=== PATIENT | male | born 1960 | race African-American/Black ===

== ENCOUNTER 2025-02-01 22:35 | Emergency (ER) | payer OTHER ==
[2025-02-01] MEDS ORDERED: LIDOCAINE 2% W/EPI 1:200,000 MPF 20 ML VIAL IM ONE (23:17)
--- NOTE | 2025-02-02 00:41 | ER ---
Nurse's Notes [facility] Name: Kyle Coats Age: 64 yrs Sex: Male : 1960 Arrival Date: 02/01/2025 Time: 22:35 Bed 6 Private MD: Diagnosis: Laceration without foreign body of scalp Presentation: 02/01 22:54 Chief complaint: Patient states: was on his bed fixing his vent, was coming down from al5 the bed and fell and hit his head, laceration to right side back of scalp minimal bleeding. denies LOC and blood thinners. Coronavirus screen: At this time, the client does not indicate any symptoms associated with coronavirus-19. Ebola Screen: No symptoms or risks identified at this time. Complicating Factors: There are no complicating factors for this patient. Initial Sepsis Screen: Does the patient meet any 2 criteria? No. Patient's initial sepsis screen is negative. Does the patient have a suspected source of infection? No. Patient's initial sepsis screen is negative. Risk Assessment: Do you want to hurt yourself or someone else? Patient reports no desire to harm self or others. Onset of symptoms was February 01, 2025. 22:54 Method Of Arrival: Ambulatory al5 22:54 Acuity: FARRAH 3 al5 Triage Assessment: 22:57 General: Appears in no apparent distress. comfortable, Behavior is calm, cooperative. al5 Pain: Complains of pain in right parietal area. EENT: No signs and/or symptoms were reported regarding the EENT system. Neuro: Level of Consciousness is awake, alert, obeys commands, Oriented to person, place, time, situation. Cardiovascular: Capillary refill < 3 seconds Patient's skin is warm and dry. Respiratory: Airway is patent Respiratory effort is even, unlabored, Respiratory pattern is regular, symmetrical. GI: No signs and/or symptoms were reported involving the gastrointestinal system. : No signs and/or symptoms were reported regarding the genitourinary system. Derm: Wound noted right parietal area. Musculoskeletal: No signs and/or symptoms reported regarding the musculoskeletal system. Injury Description: Laceration sustained to right parietal area is clean, is bleeding a small amount. Historical: - Allergies: 22:56 No Known Allergies; al5 - PMHx: 22:56 Myocardial infarction; Hypertensive disorder; Hypercholesterolemia; prostate cancer; al5 - PSHx: 22:56 Coronary artery bypass graft; al5 - Immunization history:: Adult Immunizations up to date, Last tetanus immunization: up to date. - Infectious Disease History:: Denies. - Social history:: Smoking status: Patient denies any tobacco usage or history of. Screenin:58 [facility] ED Fall Risk Assessment (Adult) History of falling in the last 3 months, al5 including since admission Yes- single mechanical fall (1 pt) Confusion or Disorientation No (0 pts) Intoxicated or Sedated No (0 pts) Impaired Gait No (0 pts) Mobility Assist Device Used No (0 pt) Altered Elimination No (0 pt) Score/Fall Risk Level 0 - 2 = Low Risk Oriented to surroundings, Maintained a safe environment, Hourly rounding (assess needs \T\ fall precautionary measures) done. Abuse screen: Denies threats or abuse. Denies injuries from another. Nutritional screening: No deficits noted. Tuberculosis screening: No symptoms or risk factors identified. Assessment: 22:58 Reassessment: see triage assessment. al5 02/02 00:23 Reassessment: Patient appears in no apparent distress at this time. No changes from al5 previously documented assessment. Patient and/or family updated on plan of care and expected duration. Pain level reassessed. Patient is alert, oriented x 3, equal unlabored respirations, skin warm/dry/pink. Vital Signs: 02/01 22:54 BP 145 / 87; Pulse 63; Resp 16; Temp 98.2; Pulse Ox 100% on R/A; Weight 93.44 kg; al5 Height 5 ft. 10 in. ; 23:00 BP 134 / 82; Pulse 62; Resp 16; Pulse Ox 100% ; al5 23:30 BP 131 / 80; Pulse 62; Resp 16; Pulse Ox 99% ; al5 02/02 00:00 BP 142 / 82; Pulse 64; Resp 16; Pulse Ox 99% ; al5 00:53 BP 137 / 84; Pulse 61; Resp 16; Pulse Ox 100% ; al5 02/01 22:54 Body Mass Index 29.56 (93.44 kg, 177.8 cm) al5 ED Course: 02/01 22:40 Patient arrived in ED. jj6 22:54 Rhoda Colvin, RN is Primary Nurse. al5 22:56 Triage completed. al5 22:57 Campbell Richey PA is PHCP. cp 22:57 Reagan Laguna MD is Attending Physician. cp 22:58 Arm band placed on right wrist. Patient placed in the treatment room, in view of staff al5 members, on pulse oximetry. 22:59 Patient has correct armband on for positive identification. Bed in low position. Call al5 light in reach. Side rails up X2. Provided Education on: plan of care. 23:19 CT Head C Spine In Process Unspecified. EDOH 02/02 00:52 Assist provider with laceration repair on right parietal area that was between 2.6 to al5 7.5 cm using ara. Set up tray. Performed by Campbell GODOY Dressed with Neosporin, Patient tolerated well. Patient did not have IV access during this emergency room visit. Administered Medications: 00:20 Drug: Lidocaine Infiltration (2 %) 10 ml 5 ml Infiltration once; to bedside with al5 epinephrine {Note: given by provider.} Volume: 5 ml; Route: Infiltration; Medication: 02/01 22:58 VIS not applicable for this client. al5 Outcome: 02/02 00:40 Discharge ordered by . cp 00:53 Discharged to home ambulatory, with significant other, al5 00:53 Condition: good 00:53 Discharge instructions given to patient, Instructed on discharge instructions, follow up and referral plans. Demonstrated understanding of instructions, follow-up care, 00:53 Patient left the ED. al5 Signatures: Dispatcher [employer] EDOH Campbell Richey PA PA cp Jeffries, Jennifer [email or web address] Rhoda Colvin RN RN al5
--- NOTE | 2025-02-02 00:41 | EDPHYS ---
Physician Documentation [facility] Name: Kyle Coats Age: 64 yrs Sex: Male : 1960 Arrival Date: 02/01/2025 Time: 22:35 Bed 6 Private MD: ED Physician Reagan Laguna HPI: 02/01 23:00 This 64 yrs old Black Male presents to ER via Ambulatory with complaints of Laceration cp To Head. 23:00 The patient has a laceration occurred at home, fell off bed striking right posterior cp scalp. Onset: The symptoms/episode began/occurred just prior to arrival. Associated signs and symptoms: Pertinent negatives: heavy bleeding, loss of consciousness. Historical: - Allergies: 22:56 No Known Allergies; al5 - PMHx: 22:56 Myocardial infarction; Hypertensive disorder; Hypercholesterolemia; prostate cancer; al5 - PSHx: 22:56 Coronary artery bypass graft; al5 - Immunization history:: Adult Immunizations up to date, Last tetanus immunization: up to date. - Infectious Disease History:: Denies. - Social history:: Smoking status: Patient denies any tobacco usage or history of. ROS: 23:05 Constitutional: Negative for body aches, chills, fever, poor PO intake, cp 23:05 Eyes: Negative for injury, pain, redness, and discharge, cp 23:05 Neck: Negative for pain with movement, pain at rest, stiffness, 23:05 Cardiovascular: Negative for chest pain, 23:05 Respiratory: Negative for cough, shortness of breath, wheezing, 23:05 Abdomen/GI: Negative for abdominal pain, nausea, vomiting, and diarrhea, 23:05 Skin: Positive for laceration(s), of the right posterior scalp, 23:05 Neuro: Negative for altered mental status, loss of consciousness, 23:05 All other systems are negative, Exam: 23:10 Constitutional: The patient appears in no acute distress, alert, awake, non-toxic, well cp developed, well nourished, 23:10 Head/face: Noted is a laceration(s), that is deep, that is linear, of the right side cp of the back of head, swelling, that is mild, tenderness, 23:10 Eyes: Periorbital structures: appear normal, Pupils: equal, round, and reactive to light and accomodation, Extraocular movements: intact throughout, Lids and lashes: appear normal, bilaterally, 23:10 ENT: External ear(s): are unremarkable, Nose: is normal, Mouth: Lips: moist, Oral mucosa: moist, Posterior pharynx: Airway: no evidence of obstruction, patent, 23:10 Neck: C-spine: vertebral tenderness, is not appreciated, crepitus, is not appreciated, ROM/movement: pain, that is mild, with any movement, limited range of motion, is not appreciated, nuchal rigidity, is not appreciated, 23:10 Chest/axilla: Inspection: normal, Palpation: is normal, no crepitus, no tenderness, 23:10 Cardiovascular: Rate: normal, 23:10 Respiratory: the patient does not display signs of respiratory distress, Respirations: normal, no use of accessory muscles, no retractions, labored breathing, is not present, Breath sounds: are clear throughout, no decreased breath sounds, no stridor, no wheezing, 23:10 Abdomen/GI: Inspection: abdomen appears normal, Palpation: abdomen is soft and non-tender, in all quadrants, 23:10 Back: vertebral tenderness, is not appreciated, 23:10 Neuro: Orientation: to person, place \T\ time. Mentation: is normal, Cerebellar function: is grossly normal, Motor: moves all fours, strength is normal, Sensation: is normal, Vital Signs: 22:54 BP 145 / 87; Pulse 63; Resp 16; Temp 98.2; Pulse Ox 100% on R/A; Weight 93.44 kg; al5 Height 5 ft. 10 in. ; 23:00 BP 134 / 82; Pulse 62; Resp 16; Pulse Ox 100% ; al5 23:30 BP 131 / 80; Pulse 62; Resp 16; Pulse Ox 99% ; al5 02/02 00:00 BP 142 / 82; Pulse 64; Resp 16; Pulse Ox 99% ; al5 00:53 BP 137 / 84; Pulse 61; Resp 16; Pulse Ox 100% ; al5 02/01 22:54 Body Mass Index 29.56 (93.44 kg, 177.8 cm) al5 Laceration: 00:06 Wound Repair of 5cm ( 2.0in ) subcutaneous laceration to left side posterior scalp. cp Linear shaped.. Distal neuro/vascular/tendon intact. Anesthesia: Wound infiltrated with 8 mls of 2% lidocaine. Wound prep: Simple cleansing by me, Wound irrigation by me. Skin closed with 9 1-0 Negin using staple gun. Dressed with Bacitracin, 4x4's. Patient tolerated well. MDM: 02/01 22:57 Medical Screening Exam initiated 23:00 Differential diagnosis: superficial laceration, skull fracture, intracranial bleed, cp cervical fracture. 02/02 00:40 Data reviewed: vital signs, nurses notes, radiologic studies, CT scan, and as a result, I will discharge patient. 00:40 I considered the following discharge prescriptions or medication management in the emergency department Medications were administered in the Emergency Department. See MAR. Counseling: I had a detailed discussion with the patient and/or guardian regarding the historical points, exam findings, and any diagnostic results supporting the discharge/admit diagnosis, lab results, radiology results, to return to the emergency department if symptoms worsen or persist or if there are any questions or concerns that arise at home. Response to treatment: the patient's symptoms have markedly improved after treatment, and as a result, I will discharge patient. Special discussion: Based on the patient's history, exam and DX evaluation, there is no indication for emergent intervention or inpatient TX. It is understood by the patient/guardian that if the SXs persist or worsen they need to return immediately for re-evaluation. 02/01 23:00 Order name: CT Head C Spine 02/01 23:00 Order name: Dressing - Wound; Complete Time: 00:47 02/01 23:00 Order name: Gloves, Sterile; Complete Time: 23:17 cp 02/01 23:00 Order name: Setup Suture Tray; Complete Time: 23:17 02/02 00:14 Order name: Wound dressing; Complete Time: 00:50 cp Administered Medications: 00:20 Drug: Lidocaine Infiltration (2 %) 10 ml 5 ml Infiltration once; to bedside with al5 epinephrine {Note: given by provider.} Volume: 5 ml; Route: Infiltration; Disposition: 22:31 Co-signature as Attending Physician, Reagan Laguna MD I agree with the assessment sp4 and plan of care. I reviewed the patient's care provided by the Advanced Practice Provider and agree with the diagnosis and treatment plan. 02/03 00:48 Chart complete. cp Disposition Summary: 02/02/25 00:40 Discharge Ordered Notes: Location: Home cp Problem: new cp Symptoms: have improved cp Condition: Stable cp Diagnosis - Laceration without foreign body of scalp cp Followup: cp - With: Private Physician - When: 7 - 10 days - Reason: Staple/Suture removal Discharge Instructions: - Discharge Summary Sheet cp - Head Injury, Adult cp - Laceration Care, Adult cp - Sutures, Negin, or Adhesive Wound Closure cp Forms: - Medication Reconciliation Form cp - Antibiotic Education cp - Prescription Opioid Use cp - Patient Portal Instructions cp - Leadership Thank You Letter cp Signatures: Dispatcher [employer] EDMS Campbell Richey PA PA cp Reagan Laguna MD MD sp4 Rhoda Colvin RN RN al5 Corrections: (The following items were deleted from the chart) 00:42 04 22:31 This 64 yrs old Black Male presents to ER via Ambulatory with complaints of cp Laceration To Head. sp4 02/03 00:43 02/01 22:31 This 64 yrs old Black Male presents to ER via Ambulatory with complaints of cp Laceration To Head. cp 02/03 00:43 02/01 22:31 The patient has a laceration occurred at home, fell off bed striking right cp posterior scalp, cp 02/03 00:43 02/01 22:31 Onset: The symptoms/episode began/occurred just prior to arrival, cp cp 02/03 00:43 02/01 22:31 Associated signs and symptoms: Pertinent negatives: heavy bleeding, loss of cp consciousness, cp
--- NOTE | 2025-02-02 01:02 | RAD REPORT ---
EXAM: CT Head and Cervical Spine Without Intravenous Contrast CLINICAL HISTORY: The patient is 64 years old and is Male; head injury TECHNIQUE: Axial computed tomography images of the head/brain and cervical spine without intravenous contrast. Sagittal and coronal reformatted images were created and reviewed. This CT exam was performed using one or more of the following dose reduction techniques: automated exposure control, adjustmen t of the mA and/or kV according to patient size, and/or use of iterative reconstruction technique. COMPARISON: No relevant prior studies available. FINDINGS: BRAIN: Unremarkable. No hemorrhage. No significant white matter disease. No edema. VENTRICLES: Unremarkable. No ventriculomegaly. SKULL: No acute fracture. SINUSES: Unremarkable as visualized. No acute sinusitis. MASTOID AIR CELLS: Unremarkable as visualized. No mastoid effusion. VERTEBRAE: Straightening of the normal cervical curvature is present. The vertebral body height s and alignment are maintained. There is no acute fracture. DISCS/SPINAL CANAL/NEURAL FORAMINA: Bulky anterior osteophyte formation throughout the cervical s pine is present. Calcification of posterior longitudinal ligament from C4 through C7 is present. Diffuse canal narrowing is noted. Intervertebral disc space narrowing is noted at multiple levels mos t prominent at C3-C4. SOFT TISSUES: The soft tissues are normal. LUNG APICES: The lung apices are clear. IMPRESSION: 1. No acute intracranial findings. 2. Straightening of the normal cervical curvature is present. Findings may be secondary to patien t position versus muscle spasm. 3. Moderate spondylosis of the cervical spine without acute findings. Electronically signed by: Genesis Blancas MD 02/02/2025 12:15 AM CDT Due to temporary technical issues with the PACS/AddSearch reporting system, reports are being kassidy d by the in-house radiologist without review as a courtesy to ensure prompt reporting the interpreting radiologist is fully responsible for the content of the report. Transcribed Date/Time: 02/02/2025 1:02 AM
[2025-02-02 01:05] VITALS: TEMP 98.2
[2025-02-02 01:12] VITALS: BP 137/84; O2SAT 100
== END 2025-02-02 00:53 | disposition home or self-care (01) ==
LOC: ER 22:35
DX: S01.01XA Laceration without foreign body of scalp, initial encounter (principal); W06.XXXA Fall from bed, initial encounter
CPT/HCPCS: 12002; 12032; 70450; 72125; 99284